=== PATIENT | female | born 1975 | race Caucasian/White ===

== ENCOUNTER 2017-07-06 08:31 | Day surgery (SDC) | payer OTHER ==
[~2017-07-06 08:31] MED LIST: Lidocaine 1% with EPINEPHrine 1:100,000 50 ML MDV ONE; Midazolam 1 MG/ML 2 ML SDV ONE; Propofol 200 MG/20 ML SDV ONE; Sodium Chloride 0.9% 10 ML ONE; Sodium Tetradecyl Sulfate 1% 20 MG/2 ML SDV ONE; fentaNYL 100 MCG/2 ML SDV ONE
[2017-07-06] MEDS ORDERED: Sodium Chloride 0.9% 1,000 ML IV SCH (09:30)
[2017-07-06] MEDS ORDERED: Lidocaine 1% w/EPINEPHrine 50 ML, Sodium Bicarbonate 5 MEQ in Sodium Chloride 0.9% 950 ML INJECT ONE (09:45)
[2017-07-06] MEDS ORDERED: fentaNYL 100 MCG/2 ML SDV ONE (10:25)
[2017-07-06] MEDS ORDERED: Midazolam 1 MG/ML 2 ML SDV ONE (10:28)
--- NOTE | 2017-07-06 15:08 | OR ---
DATE OF PROCEDURE: 07/06/2017 PROCEDURE: 1. Radiofrequency ablation of left greater saphenous vein. 2. Sclerotherapy left leg, multiple. 3. Compression wrapping, left leg (81015). COMPLICATIONS: None. SHROUDMAN: None. ANESTHETIC: MAC/local. PREOPERATIVE DIAGNOSES: Venous/varicose vein insufficiency with inflammation and pain. POSTOPERATIVE DIAGNOSES: Venous/varicose vein insufficiency with inflammation and pain. RISKS: Risks, benefits, alternatives, limitations including, but not limited to infection, bleeding, and perforation and DVT formation were explained to the patient who wished to proceed. PROCEDURE IN DETAIL: The patient was placed in supine position. The GSV was accessed over at the level of the mid calf due to tortuosity. This was accessed via a 21-gauge needle and then exchanged for a 35,000th wire, then exchanged for a 7-Kenyan sheath after injecting with 1% lidocaine anesthesia. The RFA probe was advanced to 3.5 cm from the saphenofemoral junction. Dark tumescent fluid was injected in 1 cm jacket around this and verified a second and third time. Direct even pressure was applied as the probe was deployed proximally and distally x2 and x1 in all other segments. The sheath and device were then removed. Sclerotherapy was then performed on the left side. There were 5 on the left. This was performed using 0.33% sodium tetradecyl ranging up to 6 cm. No more than 2 mL was injected in one location. This is always verified for intravascular injection only. Two-stage CoFlex wrapping was then performed using the [id number] system. Adrián Hawk MD /[id number]
== END 2017-07-06 12:30 | disposition home or self-care (01) ==
LOC: JP.SDS 08:31
PROVIDERS: ATTEND Surgery
DX: I87.2 Venous insufficiency (chronic) (peripheral) (principal); I83.11 Varicose veins of right lower extremity with inflammation; I83.12 Varicose veins of left lower extremity with inflammation; I83.813 Varicose veins of bilateral lower extremities with pain; G89.29 Other chronic pain; M54.5 Low back pain; F41.9 Anxiety disorder, unspecified; F32.9 Major depressive disorder, single episode, unspecified
CPT/HCPCS: 29581; 36471; 36475; J1642; J2250; J2704; J3010; J7040; J7050; J3490

== ENCOUNTER 2020-07-09 05:25 | Inpatient (IN) | payer BC ==
[2020-07-09 05:49] LABS: HEMOGLOBIN A1C 5.7 % (4.5-6.2)
[2020-07-09] MEDS ORDERED: Acetaminophen 500 MG Tab PO ONE (06:00)
[2020-07-09] MEDS ORDERED: Celecoxib 200 MG Cap PO ONE (06:00)
[2020-07-09] MEDS ORDERED: Gabapentin 300 MG Cap PO ONE (06:00)
[2020-07-09] MEDS ORDERED: Scopolamine 1.5 MG Transdermal Patch TOP SCH (06:00)
[2020-07-09] MEDS ORDERED: cefOXitin 2 GM Vial ONE (06:52)
[2020-07-09] MEDS ORDERED: fentaNYL 250 MCG/5 ML SDV ONE (06:59)
[2020-07-09] MEDS ORDERED: Dextrose 5%-Lactated Ringers 1,000 ML IV SCH (07:00)
[2020-07-09] MEDS ORDERED: Propofol 200 MG/20 ML SDV ONE (07:01)
[2020-07-09] MEDS ORDERED: Rocuronium 50 MG/5 ML Vial ONE (07:01)
[2020-07-09] MEDS ORDERED: Ondansetron 4 MG/2 ML SDV ONE (07:01)
[2020-07-09] MEDS ORDERED: Neostigmine Methylsulfate 1 MG/ML 5 ML Syringe ONE (07:01)
[2020-07-09] MEDS ORDERED: Dexamethasone 4 MG/ML SDV ONE (07:01)
[2020-07-09] MEDS ORDERED: Succinylcholine 200 MG/10 ML MDV ONE (07:01)
[2020-07-09] MEDS ORDERED: Glycopyrrolate 0.2 MG/ML 5 ML MDV ONE (07:01)
[2020-07-09] MEDS ORDERED: Lactated Ringers 1,000 ML ONE (07:04)
[2020-07-09] MEDS ORDERED: cefOXitin 2 GM in Sodium Chloride 0.9% 50 ML IV ONE (07:15)
[2020-07-09] MEDS ORDERED: Ketamine 500 MG/5 ML MDV IV SCH (07:30)
[2020-07-09] MEDS ORDERED: Ketamine 50 MG in Sodium Chloride 0.9% 49.5 ML IV SCH (07:30)
[2020-07-09] MEDS ORDERED: fentaNYL 100 MCG/2 ML SDV ONE (08:27)
[2020-07-09] MEDS ORDERED: hydrOXYzine HCL 100 MG/2 ML SDV IM ONE (09:09)
[2020-07-09] MEDS ORDERED: fentaNYL 100 MCG/2 ML SDV IVPUSH ONE (09:28)
[2020-07-09] MEDS ORDERED: Naloxone 0.4 MG/ML SDV IVPUSH PRN (09:39)
[2020-07-09] MEDS ORDERED: HYDROmorphone/Normal Saline 15 MG/30 ML PCA IV PRN (09:39)
[2020-07-09] MEDS ORDERED: diphenhydrAMINE 50 MG/ML SDV IVPUSH PRN ×2 (09:39→11:00)
[2020-07-09] MEDS ORDERED: Ondansetron 4 MG/2 ML SDV IVPUSH PRN ×2 (09:39→11:00)
[2020-07-09] MEDS ORDERED: diphenhydrAMINE 25 MG Cap PO PRN (09:39)
[2020-07-09] MEDS ORDERED: Naloxone 0.4 MG/ML SDV IV PRN (10:00)
[2020-07-09] MEDS ORDERED: Cyclobenzaprine 10 MG Tab PO PRN (10:59)
[2020-07-09] MEDS ORDERED: Acetaminophen 500 MG Tab PO SCH (11:00)
[2020-07-09] MEDS ORDERED: Calcium Gluconate 10% 1 GM/10 ML SDV IVPUSH PRN (11:00)
[2020-07-09] MEDS ORDERED: HYDROmorphone 1 MG/ML Syringe IV PRN (11:00)
[2020-07-09] MEDS ORDERED: HYDROmorphone 0.5 MG/0.5 ML Syringe IVPUSH PRN (11:00)
[2020-07-09] MEDS ORDERED: hydrOXYzine HCL 100 MG/2 ML SDV IM PRN (11:00)
[2020-07-09] MEDS ORDERED: Acetaminophen 500 MG Tab PO PRN (11:00)
[2020-07-09] MEDS ORDERED: Labetalol 20 MG/4 ML Syringe IVPUSH PRN (11:00)
[2020-07-09] MEDS ORDERED: Metoclopramide 10 MG/2 ML SDV IVPUSH PRN (11:00)
[2020-07-09] MEDS ORDERED: ALPRAZolam 0.5 MG Tab PO PRN (11:05)
[2020-07-09] MEDS ORDERED: Pantoprazole 40 MG Vial IVPUSH SCH (12:00)
[2020-07-09] MEDS: Sodium Ferric Gluconate Cmplex 250 MG in Sodium Chloride 0.9% 100 ML IV SCH (12:42)
[2020-07-09] MEDS: Dextrose 5%-Lactated Ringers 1,000 ML IV SCH (12:42)
[2020-07-09] MEDS: Acetaminophen 500 MG Tab PO SCH ×2 (15:24→21:05)
[2020-07-09] MEDS: cefOXitin 2 GM in Sodium Chloride 0.9% 50 ML IV SCH ×2 (15:24→21:01)
[2020-07-09] MEDS: DULoxetine 30 MG Cap PO SCH (15:24)
[2020-07-09] MEDS: Heparin Sodium 5,000 Units/ML Vial SUBCUT SCH (15:24)
[2020-07-09] MEDS: Gabapentin 250 MG/5 ML Solution ML 470 ML Bottle PO SCH ×2 (15:25→21:04)
[2020-07-09] MEDS ORDERED: MVI, Adult with Vitamin K 10 ML, Thiamine 200 MG, Zinc/Copper/Manganese/Selenium 1 ML i... IV SCH ×4 (16:00)
[2020-07-10] MEDS: Dextrose 5%-Lactated Ringers 1,000 ML IV SCH ×2 (01:43→08:45)
[2020-07-10] MEDS: cefOXitin 2 GM in Sodium Chloride 0.9% 50 ML IV SCH ×3 (01:45→14:24)
[2020-07-10] MEDS: Heparin Sodium 5,000 Units/ML Vial SUBCUT SCH ×2 (04:12→16:42)
[2020-07-10] MEDS: Acetaminophen 500 MG Tab PO SCH ×3 (05:23→21:54)
[2020-07-10] MEDS ORDERED: Ondansetron 4 MG Tab.DIS PO PRN (06:51)
[2020-07-10] MEDS ORDERED: HYDROmorphone 2 MG Tab PO PRN (06:53)
[2020-07-10] MEDS ORDERED: hydrOXYzine HCl 25 MG Tab PO PRN (06:53)
--- NOTE | 2020-07-10 07:46 | CRLCR ---
INDICATION: Status post bariatric surgery COMPARISON: none TECHNIQUE: Two supine views were obtained of the abdomen following oral contrast administration. FINDINGS: The initial image at 4:21 a.m. demonstrates normal appearance of the gastric pouch and free passage of contrast from the pouch across the gastroenterostomy. Second image performed at 4:33 a.m. shows progression of contrast material through small intestine which appears normal. There is no evidence of extravasated contrast which would indicate a leak. A surgical drain lines within the upper surgical bed. IMPRESSION: Normal appearance of the gastric bypass surgical site. Dictated by Hosea Reyes MD @ 07/10/2020 7:43:41 AM Dictated by: Hosea Reyes MD @ 07/10/2020 07:43:46 (Electronically Signed)
[2020-07-10] MEDS: Celecoxib 200 MG Cap PO SCH ×2 (08:48→21:54)
[2020-07-10] MEDS: DULoxetine 30 MG Cap PO SCH (08:48)
[2020-07-10] MEDS: Gabapentin 250 MG/5 ML Solution ML 470 ML Bottle PO SCH ×3 (08:48→22:00)
[2020-07-10] MEDS: SCOPOLAMINE PATCH CHECK TOP SCH (09:45)
[2020-07-10] MEDS: Acetaminophen/oxyCODONE 325-10 MG Tab PO PRN ×2 (11:15→19:32)
[2020-07-10] MEDS ORDERED: Benzocaine/Cetylpyridinium/Menthol Lozenge MUCMEM PRN (12:06)
--- NOTE | 2020-07-10 12:33 | PN ---
DATE OF SERVICE: 07/10/2020 SUBJECTIVE: Riky is postoperative day #1. Upper GI was normal. Vital signs stable. She had quite a bit of pain postoperatively. She has been using the [employer]ILER. She states she feels better this morning. She has been up ambulating. Oral intake 420. Urine output 2275 and JENNIFER drain put out 100 mL of a light pink drainage. REVIEW OF SYSTEMS: Remainder of review of systems negative for any pertinent positives and negatives. OBJECTIVE: GENERAL: Riky is a pleasant 44-year-old female. She is alert and orientated. VITAL SIGNS: TPR is 98.2, 86, 18, and blood pressure 120/73. HEENT: Negative. NECK: Supple. HEART: Regular rate and rhythm. LUNGS: Clear. ABDOMEN: Dressings dry and intact. Abdominal binder is on. JENNIFER drain noted as above. EXTREMITIES: Without peripheral edema. ASSESSMENT: Laparoscopic Jesus-en-Y gastric bypass surgery, liver biopsy, repair of paraesophageal diaphragmatic hernia, and removal of mediastinal lipoma. Postop diagnoses: Morbid obesity, hepatomegaly, diaphragmatic hernia, and mediastinal lipoma. Date of procedure: 07/09/2020. Surgeon: Von Rogers MD. PLAN: 1. Step 2 gastric bypass diet with no cereal. 2. Decrease IV to 100 mL per hour. 3. Dressing off, may shower. 4. Zofran 4 mg ODT sublingual every 4 hours p.r.n. nausea. 5. Communication order 3 med cups, 1 every 20 minutes, and record at bedside. 6. Restart the patient's home med of Percocet 10/325 mg which she takes every 8 hours as needed for pain per pain contract. 7. Continue use of incentive spirometer and ambulation. 8. We will evaluate p.r.n. or in a.m. Morena Sharpe PA-C /[id number]
[2020-07-10] MEDS: Sodium Ferric Gluconate Cmplex 250 MG in Sodium Chloride 0.9% 100 ML IV SCH (13:41)
[2020-07-10] MEDS ORDERED: MVI, Adult with Vitamin K 10 ML, Thiamine 200 MG, Zinc/Copper/Manganese/Selenium 1 ML i... IV SCH ×4 (16:00)
[2020-07-10] MEDS: Pantoprazole 40 MG Delayed-Release Granules 1 Packet PO SCH (16:42)
[2020-07-11] MEDS: Dextrose 5%-Lactated Ringers 1,000 ML IV SCH (03:34)
[2020-07-11] MEDS: Heparin Sodium 5,000 Units/ML Vial SUBCUT SCH ×2 (03:35→16:59)
[2020-07-11] MEDS: Acetaminophen/oxyCODONE 325-10 MG Tab PO PRN ×3 (03:36→20:03)
[2020-07-11] MEDS: Acetaminophen 500 MG Tab PO SCH ×3 (05:30→21:54)
[2020-07-11] MEDS ORDERED: Magnesium Hydroxide 400 MG/5 ML Susp 30 ML Cup PO PRN (08:18)
[2020-07-11] MEDS ORDERED: Cyanocobalamin (Vitamin B12) 1,000 MCG/ML SDV IM ONE (09:00)
[2020-07-11] MEDS: SCOPOLAMINE PATCH CHECK TOP SCH (09:03)
[2020-07-11] MEDS: DULoxetine 30 MG Cap PO SCH (09:05)
[2020-07-11] MEDS: Celecoxib 200 MG Cap PO SCH ×2 (09:05→21:49)
[2020-07-11] MEDS: Bisacodyl 5 MG Tab PO SCH ×2 (09:05→21:49)
[2020-07-11] MEDS: Gabapentin 250 MG/5 ML Solution ML 470 ML Bottle PO SCH ×3 (09:12→21:53)
[2020-07-11] MEDS ORDERED: Sodium Chloride 0.9% 10 ML Syringe IV PRN (14:58)
[2020-07-11] MEDS: Pantoprazole 40 MG Delayed-Release Granules 1 Packet PO SCH (16:59)
[2020-07-12] MEDS: Acetaminophen/oxyCODONE 325-10 MG Tab PO PRN (04:32)
[2020-07-12] MEDS: Heparin Sodium 5,000 Units/ML Vial SUBCUT SCH (04:35)
[2020-07-12] MEDS: Celecoxib 200 MG Cap PO SCH (08:23)
[2020-07-12] MEDS: DULoxetine 30 MG Cap PO SCH (08:23)
[2020-07-12] MEDS: Bisacodyl 5 MG Tab PO SCH (08:23)
[2020-07-12] MEDS: Gabapentin 250 MG/5 ML Solution ML 470 ML Bottle PO SCH (08:24)
[2020-07-12] MEDS: Acetaminophen 500 MG Tab PO SCH (08:24)
--- NOTE | 2020-07-12 11:13 | PN ---
DATE OF SERVICE: 07/11/2020 The patient has been afebrile with stable vital signs. She is feeling a little bit bloated, not moving her bowels yet. We will give her some bowel stimulation today. Otherwise, maximize activity and work with pulmonary toilet. She will probably need a little bit more in the way of ongoing bowel stimulation given her chronic oxycodone use. We will like to get the JENNIFER drain come out today and discontinue the scopolamine patch. She will likely be ready for discharge home tomorrow. Von Rogers MD /[id number]
[2020-07-12] MEDS ORDERED: Magnesium Hydroxide 400 MG/5 ML Susp 30 ML Cup PO PRN (11:40)
--- NOTE | 2020-07-13 14:00 | DISCH ---
FINAL DIAGNOSES: 1. Morbid obesity. 2. Marked hepatomegaly. 3. Paraesophageal diaphragmatic hernia associated with mediastinal lipoma. 4. History of chronic back pain. 5. Anxiety and depression. 6. Long-term opioid analgesic user. 7. Polycystic ovary syndrome. 8. Restless legs syndrome. 9. Obstructive sleep apnea. OPERATIVE PROCEDURE: Done on 07/09. Diagnostic laparoscopy with: 1. Laparoscopic Jesus-en-Y gastric bypass with long limb gastroenterostomy. 2. Crow-Cut needle liver biopsy. 3. Repair of paraesophageal diaphragmatic hernia. 4. Excision of mediastinal lipoma. SUMMARY: This is a 44-year-old female presenting with longstanding morbid obesity and increasingly significant comorbidities. After preoperative evaluation and discussion, she wished to proceed with a gastric bypass procedure. This was done on the day of admission along with the above concurrent procedures. Postoperatively, she had some problems with constipation through postop day two that is now resolved, and she has been tolerating a step- 2 diet. She will be discharged home. She will be taking her usual medications including the Percocet, and she is instructed to avoid Tylenol otherwise while on the Percocet, and she will be on Celebrex 200 mg p.o. b.i.d. p.r.n. Followup will be with Morena Sharpe [facility], on 07/20/2020. /[id number]
--- NOTE | 2020-07-20 08:50 | OR ---
DATE OF PROCEDURE: 07/09/2020 SURGEON: Von Rogres MD PREOPERATIVE DIAGNOSIS: Morbid obesity. POSTOPERATIVE DIAGNOSES: 1. Morbid obesity. 2. Marked hepatomegaly. 3. Paraesophageal diaphragmatic hernia. 4. Mediastinal lipoma. OPERATIVE PROCEDURES: Diagnostic laparoscopy with: 1. Laparoscopic Jesus-en-Y gastric bypass with long limb gastroenterostomy (41992). 2. Crow-Cut needle liver biopsy (46339). 3. Repair of paraesophageal diaphragmatic hernia (64507). 4. Excision of mediastinal lipoma (78018). ANESTHESIA: General. GEOTHERMAL OPERATIONS MANAGER: Morena Sharpe PA-C INDICATIONS FOR PROCEDURE: This is a 44-year-old female, presenting with longstanding morbid obesity and increasingly significant comorbidities. After preoperative evaluation and discussion, she wished to proceed with a gastric bypass procedure. Potential risks of the procedure including bleeding, infection, leaks from various GI tract closures, problems with bowel obstruction over time, as well as possibility of cardiopulmonary, septic, or hemorrhagic complications leading to were discussed, and the patient wishes to proceed. DETAILS TO PROCEDURE: The patient was taken to the operating room, and after general endotracheal anesthesia was induced, she was placed in a lithotomy position and the abdomen prepped and draped. 15 cm inferior and 5 cm left of the xiphoid process, a transverse incision was made and peritoneal cavity entered under direct vision with an Optiview trocar, inflated 15 mmHg pressure of CO2. Laparoscope was then reinserted. No underlying trocar insertion site injuries were seen. Following this, bilateral subcostal transversus abdominis plane blocks were placed and 5 additional trocars were placed across the upper and mid abdomen. The patient was noted to have marked hepatomegaly with liver biopsies obtained from left lobe of the liver. Minimal bleeding from the biopsy sites was controlled with electrocautery. The omentum was then divided in the midline up to the level of the transverse colon, and this allowed identification of the small bowel to the ligament of Treitz. Small bowel was then traced out 125 cm distal to that point, where it was divided transversely with a KATHY stapler. Small bowel was then traced out additional 150 cm where the [id number] enteroenterostomy was accomplished with internal firing of the Endo-KATHY 60 mm stapler, common opening was then closed transversely with the same stapler and angles anastomosed and mesenteric defect approximated with some 0 Ethibond sutures along with 4 mL of fibrin sealant. Divided end of the Jesus limb was from the mesentery for a few centimeters, which allowed an antecolic position of the Jesus limb up to the level of the gastroesophageal junction without tension. The liver was then retracted anteriorly. The patient was noted to have a paraesophageal diaphragmatic hernia involving perigastric fat, some gastric fundus, and a tongue of omentum. The hernia was reduced at this point and the peritoneum overlying incised and reflected downward. During the course of the dissection, mediastinal lipoma was encountered and this was excised to allow more adequate closure of the crura. Crural repair was then accomplished anteriorly with 0 Ethibond sutures reinforced with PTFE pledgets. Gastrointestinal catheter was then inflated to 15 mL and pulled up snugly against the EG junction. The gastric wall over the apex balloon was then marked with electrocautery and the balloon catheter deflated and pulled up in the esophagus. The lesser omental tissue adjacent to the gastric cardia was then incised, allowing dissection behind the stomach at that level. Pouch formation was initiated with a transverse firing of the KATHY stapler at the level of the cauterized sandy on the gastric cardia and then completed with additional KATHY my up to and through the angle of His. Upon completion of the pouch, both staple lines appeared to be intact. The anvil of a 25 mm EEA stapler was attached to [place] sump type tube. The latter was brought down through the mouth, taken out through small opening in the gastric pouch, allowing the anvil likewise to be pulled down to within the gastric pouch. Divided end of the Jesus limb was then opened and main body of EEA stapler passed into the small bowel, brought up the anvil, united with it thus creating the gastrojejunostomy. Upon removal of the stapler, double donuts of mucosa were noted within it. The small bowel was closed off with a vascular staple line. Gastrojejunostomy was reinforced with 3-0 Vicryl seromuscular stitch along with fibrin sealant. Leak test was accomplished with injection of 120 mL of air in the gastric pouch while it was submerged with cefoxitin-containing saline solution. No leaks were identified. A single Blanco-Paez drain was then taken out through the left lateral trocar site and positioned adjacent to the gastrojejunostomy, and from there up into the splenic fossa. The trocars were then removed and the peritoneal cavity deflated, and the incision was closed with some 4-0 Vicryl skin stitch as was used to fix the drain. The patient was taken to the recovery room in satisfactory condition. Physician public health training assistant, Morena Sharpe, played an essential role in assisting in this case, helping to position the patient, retract structures as needed, as well as suturing and cutting sutures when indicated. Her presence improved patient safety and decreased operative time. Von Rogers MD /[id number]
== END 2020-07-12 13:01 | disposition home or self-care (01) | DRG 405 ==
LOC: JP.SDSSCHI 05:25 → JP.SDS 05:25 → EDSTATUS 07:15 → JP.MS 09:15
PROVIDERS: ADMIT Surgery; ATTEND Surgery
PROC: 0D154ZA Bypass Esophagus to Jejunum, Percutaneous Endoscopic Approach (ICD-10-PCS; principal; 2020-07-09)
PROC: 0WB Anatomical Regions, General, Excision (ICD-10-PCS; principal; 2020-07-09)
PROC: 0FB04ZX Excision of Liver, Percutaneous Endoscopic Approach, Diagnostic (ICD-10-PCS; principal; 2020-07-09)
PROC: 0BQT4ZZ Repair Diaphragm, Percutaneous Endoscopic Approach (ICD-10-PCS; principal; 2020-07-09)
DX: E66.01 Morbid (severe) obesity due to excess calories (principal); R16.0 Hepatomegaly, not elsewhere classified; K44.9 Diaphragmatic hernia without obstruction or gangrene; D17.79 Benign lipomatous neoplasm of other sites; F41.9 Anxiety disorder, unspecified; E28.2 Polycystic ovarian syndrome; G25.81 Restless legs syndrome; G47.33 Obstructive sleep apnea (adult) (pediatric); F32.5 Major depressive disorder, single episode, in full remission; Z68.42 Body mass index [BMI] 45.0-49.9, adult; M54.89 Other dorsalgia; Z79.899 Other long term (current) drug therapy; K59.00 Constipation, unspecified
CPT/HCPCS: 36415; 74240; 80053; 81025; 82728; 82962; 83036; 83735; 84100; 86850; 86900; 86901; 88304; 88307; 88313; 93005; A9270-GY; C9113; J0171; J0330; J0694; J1100; J1170; J1644; J2405; J2704; J2710; J2795; J2916; J3010; J3410; J3411; J3420; J3475; J3490; J7050; J7120; J7121